=== PATIENT | female | born 1970 | race Caucasian/White ===

== ENCOUNTER 2019-09-14 10:21 | Emergency (ER) | payer OTHER, SELFPAY ==
[2019-09-14 10:36] VITALS: BP 153/93; PULSE 104; RESP 16; TEMP 37.6; O2SAT 100
--- NOTE | 2019-09-14 10:51 | ED.SKABFB ---
HPI - Skin/Abscess/Foreign Bdy General Chief complaint: Wound/Laceration Stated complaint: swollen right ring finger Time Seen by Provider: 09/14/19 10:43 Source: patient and RN notes reviewed Mode of arrival: ambulatory Limitations: no limitations History of Present Illness HPI narrative: Patient presents today complaining of redness and swelling to the right fourth finger x2 days. Reports the area started out looking like a small pimple. She applied Prid salve and has attempted to express material without relief. States the redness, pain, and swelling have worsened since onset. History of diabetes and cellulitis. MD complaint: abscess/boil Related Data Home Medications Medication Instructions Recorded Confirmed furosemide 09/14/19 lisinopril-hydrochlorothiazide tablet 09/14/19 metformin mg 09/14/19 Allergies Allergy/AdvReac Type Severity Reaction Status Date / Time No Known Allergies Allergy Unverified 04/15/12 13:21 Review of Systems Review of Systems: Narrative: CONSTITUTIONAL: Denies body aches, fever, chills, or sweats. EYES: Denies visual changes, redness, or discharge. ENT: Denies rhinorrhea, congestion, sore throat, or otalgia. CARDIOVASCULAR: Denies chest pain, palpitations, or edema. RESPIRATORY: Denies cough or dyspnea. GASTROINTESTINAL: Denies abdominal pain, nausea, vomiting, or diarrhea. GENITOURINARY: Denies dysuria or hematuria. SKIN: + Redness, swelling and pain to the right fourth finger MUSCULOSKELETAL: Denies back pain, joint pain, or myalgia. NEUROLOGIC: Denies headache, numbness, tingling, or weakness. PSYCH: Denies depression or anxiety. [facility] Past Medical History Medical History (Updated 09/14/19 @ 10:55 by Rhianna Correa, [facility], ) Diabetes History of cellulitis Comments At time of signature, I have reviewed and agree with nursing past medical, surgical, social and family history unless otherwise noted. Please see nursing chart for further information. There is no relevant family history pertinent to the presenting complaint Exam Narrative: Exam Narrative: GENERAL: Well-appearing, well-nourished, and in no acute distress. HEAD: Normocephalic, atraumatic. EYES: EOMI. No redness or drainage. Conjunctivae normal. ENT: Mucous membranes pink and moist. NECK: Normal AROM. CHEST: No respiratory distress. EXTREMITIES: Right fourth finger: Small pustule to the dorsal aspect of the middle phalanx. Mild swelling of the finger. Erythema from the middle phalanx extending proximally to the base of the finger. Distal sensation intact. Capillary refill normal. No red streaking noted. SKIN: Warm, dry, no rash. Capillary refill normal. Normal skin turgor. NEURO: No focal deficits. Alert and oriented x3. Gait steady. PSYCH: Normal affect. No signs of depression or anxiety. Course Vital Signs Vital signs: Vital Signs Temperature 99.6 F 09/14/19 10:36 Pulse Rate 104 H 09/14/19 10:36 Respiratory Rate 16 09/14/19 10:36 Blood Pressure 153/93 H 09/14/19 10:36 Pulse Oximetry 100 09/14/19 10:36 Temperature 99.6 F 09/14/19 10:36 Pulse Rate 104 H 09/14/19 10:36 Respiratory Rate 16 09/14/19 10:36 Blood Pressure 153/93 H 09/14/19 10:36 Pulse Oximetry 100 09/14/19 10:36 Reviewed. Pt has been instructed to follow up with her PCP regarding her elevated blood pressure today. Procedures Abscess I/D upper extremity: Date of Incision: 09/14/19 Side (if applicable): right Local Anesthetic: none Abcess I&D Additional Comments: 22-gauge needle was used to remove a scab over the pustule of the right fourth finger. Incision was not made. Scant amount of clear drainage resulting. Patient tolerated procedure well. MDM - Skin/Abscess/Foreign Bdy Differential Diagnosis Differential diagnosis: Likely abscess of skin or subcutaneous tissue, cellulitis, eczema, impetigo, contact dermatitis and other (Herpetic benito) Critical Car
== END 2019-09-14 10:56 | disposition home or self-care (01) ==
PROVIDERS: Emergency Provider Nurse Practitioner; PCP Internal Medicine Gastroenterology
DX: L03.113 Cellulitis of right upper limb (principal); E11.9 Type 2 diabetes mellitus without complications; Z79.84 Long term (current) use of oral hypoglycemic drugs; I10 Essential (primary) hypertension
CPT/HCPCS: 99213; G0463